=== PATIENT | female | born 1965 | race Caucasian/White ===

== ENCOUNTER 2019-10-09 17:47 | Emergency (ER) | payer BC, SELFPAY ==
[2019-10-09 17:54] VITALS: BP 126/81; PULSE 80; RESP 20; TEMP 36.9; O2SAT 100
--- NOTE | 2019-10-09 18:14 | ED.SKABFB ---
HPI - Skin/Abscess/Foreign Bdy General Chief complaint: Skin/Abscess/Foreign Body Stated complaint: rash on chin Time Seen by Provider: 10/09/19 18:06 Source: patient and RN notes reviewed Mode of arrival: ambulatory Limitations: no limitations History of Present Illness HPI narrative: Patient presents today complaining of a rash to her chin the past 4 days. It has been worsening over the last 2 days. It has started draining yellow fluid since this morning. 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 She has been applying Neosporin, Benadryl cream, and which shelia without relief. Reports a burning pain that she rates 08/21. MD complaint: rash Related Data Home Medications Medication Instructions Recorded Confirmed lisinopril-hydrochlorothiazide 1 tablet PO DAILY 10/09/19 10/09/19 Allergies Allergy/AdvReac Type Severity Reaction Status Date / Time No Known Allergies Allergy Verified 10/09/19 18:07 Review of Systems Review of Systems: Narrative: CONSTITUTIONAL: Denies body aches, fever, chills, or sweats. EYES: Denies visual changes, redness, or discharge. ENT: Denies rhinorrhea, congestion, sore throat, or otalgia. CARDIOVASCULAR: Denies chest pain, palpitations, or edema. RESPIRATORY: Denies cough or dyspnea. GASTROINTESTINAL: Denies abdominal pain, nausea, vomiting, or diarrhea. GENITOURINARY: Denies dysuria or hematuria. SKIN: Denies itching, or wounds.+ Rash to chin MUSCULOSKELETAL: Denies back pain, joint pain, or myalgia. NEUROLOGIC: Denies headache, numbness, tingling, or weakness. PSYCH: Denies depression or anxiety. PMFSH Comments At time of signature, I have reviewed and agree with nursing past medical, surgical, social and family history unless otherwise noted. Please see nursing chart for further information. There is no relevant family history pertinent to the presenting complaint Exam Narrative: Exam Narrative: GENERAL: Well-appearing, well-nourished, and in no acute distress. HEAD: Normocephalic, atraumatic. EYES: EOMI. No redness or drainage. Conjunctivae normal. ENT: Mucous membranes pink and moist. NECK: Normal AROM. CHEST: No respiratory distress. EXTREMITIES: Normal range of motion. No edema. SKIN: Warm, dry. Erythematous papular lesions with honey crusting to the entire chin. Mild edema noted as well. Capillary refill normal. Normal skin turgor. NEURO: No focal deficits. Alert and oriented x3. Gait steady. PSYCH: Normal affect. No signs of depression or anxiety. Course Vital Signs Vital signs: Vital Signs Temperature 98.4 F 10/09/19 17:54 Pulse Rate 80 10/09/19 17:54 Respiratory Rate 20 10/09/19 17:54 Blood Pressure 126/81 10/09/19 17:54 Pulse Oximetry 100 10/09/19 17:54 Temperature 98.4 F 10/09/19 17:54 Pulse Rate 80 10/09/19 17:54 Respiratory Rate 20 10/09/19 17:54 Blood Pressure 126/81 10/09/19 17:54 Pulse Oximetry 100 10/09/19 17:54 Reviewed. Pt has been instructed to follow up with her PCP regarding her elevated blood pressure today. MDM - Skin/Abscess/Foreign Bdy Differential Diagnosis Differential diagnosis: Likely abscess of skin or subcutaneous tissue, cellulitis, impetigo and contact dermatitis Critical Care Time Critical Care Time Critical Care Time: No Discharge Plan Discharge Clinical Impression: Cellulitis of chin, Impetigo Patient Disposition: Home, Self-Care Condition: Stable Instructions: Antibiotic Form, Impetigo (DC), Cellulitis (DC) Additional Instructions: Please take the Keflex and use the mupirocin ointment as directed. Try not to touch the chin as you can spread the infection. Follow-up with your primary care doctor in 3 to 4 days if symptoms are not improving. Your blood pressure was elevated above 120/80 today at Urgent Care. This puts you above the threshold for follow up. Please schedule a followup visit wit
== END 2019-10-09 18:25 | disposition home or self-care (01) ==
PROVIDERS: Emergency Provider Nurse Practitioner
DX: L03.211 Cellulitis of face (principal); L01.00 Impetigo, unspecified; I10 Essential (primary) hypertension
CPT/HCPCS: 99213; G0463